=== PATIENT | female | born 1970 | race African-American/Black ===

== ENCOUNTER 2024-01-19 21:01 | Emergency (ER) | payer SELFPAY ==
[2024-01-19 21:04] VITALS: BP 127/77
[2024-01-19 21:27] LABS: % Basophils 0.4 % (0-2); % Eosinophils 1.7 % (0-6); % Immature Granulocytes 0.2 % (0-0.5); % Lymphocytes 47.1 % (20.5-51.1); % Monocytes 8.5 % (1.7-9.3); % Neutrophils 42.1 % (42.2-75.2); Absolute Eosinophils 0.1 10^3/uL (0-0.7); Absolute Lymphocytes 2.2 10^3/uL (1.2-3.4); Absolute Monocytes 0.4 10^3/uL (0.1-0.6); Hematocrit 32.3 % (37.0-47.0); Hemoglobin 10.3 g/dL (12.0-16.0); Mean Corp Hgb Conc. 31.9 g/dL (33.0-37.0); Mean Corpuscular Hgb 26.9 pg (27.0-31.0); Mean Corpuscular Volume 84.3 fL (81.0-99.0); Mean Platelet Volume 12.1 fL (7.4-10.4); Nucleated Red Blood Cells % 0 %; Platelet Count 216 10^3/uL (130-400); Red Blood Cell Count 3.83 10^6/uL (4.20-5.40); Red Cell Dist. Width 16.4 % (11.5-14.5); Urine Albumin Trace (Neg - Trace); Urine Bilirubin Negative (Negative); Urine Character Slightly Cloudy (Clear); Urine Color Yellow; Urine Glucose Negative (Negative); Urine Ketone Negative (Negative); Urine Leukocyte 2+ (Negative); Urine Nitrite Positive (Negative); Urine Occult Blood Negative (Negative); Urine Urobilinogen Negative (Neg - 1+); Urine pH 6.5 (5.0-9.0); White Blood Cell Count 4.7 10^3/uL (4.8-10.8)
[2024-01-19 21:38] LABS: Urine Red Blood Cell 0-2 /HPF (0-2); Urine Squamous Cell >30 /LPF (Few)
[2024-01-19 21:39] LABS: Urine Bacteria Moderate (Negative); Urine Mucus Few; Urine White Cell 21-25 /HPF (0-5)
[2024-01-19 21:51] LABS: ALT (SGPT) 13 U/L (0-35); AST (SGOT) 27 U/L (14-36); Albumin 4.3 g/dl (3.5-5.0); Alkaline Phosphatase 60 U/L (38-126); Blood Urea Nitrogen 17 mg/dl (7-17); Calcium 9.9 mg/dl (8.4-10.2); Carbon Dioxide 29 mmol/L (22-30); Chloride 107 mmol/L (98-107); Glucose 103 mg/dl (70-99); Lipase 244 U/L (23-300); Potassium 4.3 mmol/L (3.5-5.1); Sodium 139 mmol/L (135-145); Total Bilirubin 0.4 mg/dl (0.2-1.3); Total Protein 7.2 g/dl (6.3-8.2); eGFR > 60.00
--- NOTE | 2024-01-19 22:47 | ED.GENMED ---
History of Present Illness
General
Chief Complaint: Abdominal Pain
Source: patient
Exam Limitations: none
Time Seen by Provider: 01/19/24 22:19
Nursing documentation reviewed up to this point in time: agreed with
History of Present Illness
History of Present Illness:
Patient is a 53-year-old female who presents to the ER for evaluation. Patient has several complaints. For the past 1 month she has noticed intermittent lower abdominal discomfort and cloudy urine and off-and-on foul-smelling urine . She denies
any urinary frequency urgency. Denies any nausea vomiting back pain fever chills. Denies any vaginal discharge
In addition she has a numbness sensation in her left hand left arm(for the past several days ) and bilateral legs(since 3 am ). She reports for the past several days she has noticed an numbness sensation in her left hand left arm. She started
with joint pain between her index finger and her left middle finger and then developed a numb sensation to her left hand and arm. She woke up however in the middle the night around 3 AM last night with a numb sensation bilateral legs. She denies
any weakness to upper or lower extremities. She has had a headache for the past couple days. She does report she had a TIA 10 years ago.
Past History
Past History
ED Past Medical History: Other (Anemia. Mitral valve prolapse)
ED Past Surgical History: and Gynecological (Tubal ligation)
Review of Systems
Review of Systems
Allergies reviewed?: Yes
All Other Systems: ROS reviewed and negative except as documented in HPI and ROS
Constitutional: Reports no symptoms; Denies fever, fatigue or chills
EENT: Reports no symptoms
Respiratory: Reports no symptoms
Cardiac: Reports no symptoms
ABD/GI: Reports abdominal pain and other (Off-and-on lower abdominal discomfort); Denies nausea or vomiting
: Reports other (Cloudy foul-smelling urine)
Musculoskeletal: Reports no symptoms
Skin: Reports no symptoms
Neurological: Reports headache (Headache for the past several days resolved now) and other (Numb sensation to left hand and arm, numb sensation to bilateral legs )
Psychiatric: Reports no symptoms
Phy Exam
General Physical Exam
General Presentation: no apparent distress
General age: appears stated age
General Skin: warm and dry
General Habitus: normal
General Mental: alert
General Hydration: appears well hydrated
Neurological Exam
Neurological Exam: alert, oriented x3, no motor deficits, no sensory deficits, speech normal and other (Normal strength of bilateral upper and lower extremities normal sensation to upper and lower extremities)
Musculoskeletal Exam
Musculoskeletal Exam: full ROM
Skin Exam
Skin Exam: normal color and warm/dry
Psychiatric Exam
Psychiatric Exam: normal mood/affect
Course
Orders/Labs/Results
Orders:
Orders
01/19/24 21:13
CBC/With Diff [Complete Blood Count/With Diff] Urgent
CMP [Comprehensive Metabolic Panel] Urgent
Lipase Urgent
Lyme Progressive Urgent
Comment: ADD ON
Urinalysis Reflex To Culture Urgent
Date Specimen was Collected: 01/19/24
Time Specimen was Collected: 21:08
Urine Microscopic Reflex Cult Urgent
Urine Culture Urgent
DAMIR Source: U
Specimen Description:
Date Specimen was Collected: 01/19/24
Time Specimen was Collected: 21:08
01/19/24 22:59
Add On- LAB Urgent
Tests Added?: lyme disease
01/19/24 23:47
Cephalexin Monohydrate [Keflex] 500 mg PO NOW STA
01/20/24 00:30
CT Head W/o Iv Contrast Urgent
Reason For Exam: numbness to lue and b/l l/e
Abnormal Lab Results
01/19/24
21:13
WBC 4.7 L 10^3/uL
(4.8-10.8)
RBC 3.83 L 10^6/uL
(4.20-5.40)
Hgb 10.3 L g/dL
(12.0-16.0)
Hct 32.3 L %
(37.0-47.0)
MCH 26.9 L pg
(27.0-31.0)
MCHC 31.9 L g/dL
(33.0-37.0)
RDW 16.4 H %
(11.5-14.5)
MPV 12.1 H fL
(7.4-10.4)
Neutrophils % 42.1 L %
(42.2-75.2)
Glucose 103 H mg/dl
(70-99)
Urine Nitrite (Reflex) Positive A
(Negative)
Leukocyte Esterase Rfl 2+ A
(Negative)
Urine WBC (Reflex) 21-25 A /HPF
(0-5)
Urine Bacteria (Reflex) Moderate A
(Negative)
01/19/24 21:13
01/19/24 21:13
Vital Signs
Initial and Last Documented VS:
Initial Vital Signs
Temp Pulse Resp BP Pulse Ox
98.0 F 77 18 127/77 98
01/19/24 21:04 01/19/24 21:04 01/19/24 21:04 01/19/24 21:04 01/19/24 21:04
Last Documented Vital Signs
Temp Pulse Resp BP Pulse Ox
98.0 F 77 18 127/80 99
01/19/24 21:04 01/19/24 21:04 01/19/24 21:04 01/20/24 03:00 01/20/24 03:15
MDM/Problems Addressed
MDM/Problems Addressed:
Patient complains of cloudy urine fullness of lower abdominal discomfort off and on with no fevers. Urine does show nitrates and 21-25 wbc in addition however not related patient complains of left hand numbness and left arm numbness which she
noticed several days ago and bilateral leg numbness which started at 3 AM. She describes this as a subjective numb sensation denies actual tingling denies weakness. She did have a headache several days ago. She presents awake alert no acute
distress. She does report she does have history of TIA over 10 years ago however was never on aspirin or a statin. She complained of small joint pain in her left hand prior to the numbness starting she has no other joint pain or fevers. She has
no acute distress with a normal neurologic exam no deficit in strength normal sensation to upper and lower extremities. No febrile normal white count hemoglobin low at 10.3 which is improved from prior visit, however patient has chronic anemia
Will check CAT scan however patient will need follow-up for subjective numbness with subjective sensation in bilateral lower extremities and no deficit on exam less concerning for stroke. lyme testing ordered. will check ct but will plan for d/c
with outpt f/u.
Also pt will be treated for UTI
*Radiology
Radiology exam reviewed: radiology read reviewed
*Pulse Oximetry
Patient hypoxic: no
*Critical Care Note
Total Time (30-74mins, 75-104mins- exclusive of procedures): Not Applicable
ED Attending Note
-
Portions of this chart may have been created with voice recognition software.� Occasional wrong word or��sound alike� substitutions may have occurred due to the inherent limitations of voice recognition software.
Discharge Plan
Departure
Patient Disposition: Home (Routine Discharge)
Date of Disposition: 01/20/24
Time of Disposition: 03:19
Patient with high blood pressure during this ER visit?: Yes
Condition: Fair
Covid-19: Not Applicable
Discharge Problem:
UTI (urinary tract infection), Numbness
Prescriptions:
New
cephalexin 500 mg capsule
500 mg PO BID 7 Days Qty: 14 0RF
No Action
cefdinir 300 mg capsule
300 mg PO BID 7 Days Qty: 14 0RF
Referrals:
Andrey Bruno MD [Active] -
Daysi Tran PA-C [Family Provider] -
Activity Restrictions/Additional Instructions:
As discussed you will be treated for urinary tract infection antibiotic was sent to your pharmacy. Regarding numbness follow-up with your family doctor as well as neurology for further evaluation. Have your family doctor follow-up on Lyme testing
which was done in the ER. Return if any worsening of symptoms.
Interventions
Interventions:
*Risk Screen - Suicide Last Done: 01/19/24 21:04
*General Assessment Last Done: 01/19/24 21:04
*Neglect/Abuse Screening Last Done: 01/19/24 21:07
ED- Fall Risk Assessment Last Done: 01/19/24 23:18
*ED COVID-19 Vaccine History Last Done: 01/19/24 23:18
*Nursing Disposition Last Done: 01/20/24 03:43
JD-Zjbnqw-Lsgdtvvbvn Assessment Last Done: 01/19/24 23:18
ED- Neurological Assessment Last Done: 01/19/24 23:18
Discharge Date and Time
Discharge Date/Time: 01/20/24 03:44
Print Language: UPPER SORBIAN
[2024-01-19 23:17] VITALS: BP 134/78
[2024-01-19] MEDS: KEFLEX 500 MG PO (23:53)
[2024-01-20 00:41] VITALS: BP 143/87
[2024-01-20 01:00] VITALS: BP 146/96
[2024-01-20 02:00] VITALS: BP 138/89
[2024-01-20 03:00] VITALS: BP 127/80
[2024-01-23 14:17] LABS: Lyme Antibody Screen, EIA Negative (Negative)
== END 2024-01-20 03:44 | disposition home or self-care (01) ==
LOC: EMR 21:01
PROVIDERS: Emergency Medicine; EMERGENCY PHYSICIAN Emergency Medicine
DX: N39.0 Urinary tract infection, site not specified (principal); R20.0 Anesthesia of skin; R10.30 Lower abdominal pain, unspecified; R51.9 Headache, unspecified; M25.542 Pain in joints of left hand; R03.0 Elevated blood-pressure reading, without diagnosis of hypertension; I34.1 Nonrheumatic mitral (valve) prolapse; D64.9 Anemia, unspecified; Z86.73 Personal history of transient ischemic attack (TIA), and cerebral infarction without residual deficits
CPT/HCPCS: 99284; 70450; 80053; 81003; 81015; 83690; 85025; 86618; 87077; 87086; 87186

== ENCOUNTER 2024-09-23 07:32 | Emergency (ER) | payer SELFPAY ==
[2024-09-23] VITALS (8 sets, daily range): BP systolic 96–149; BP diastolic 63–90
[2024-09-23 08:29] LABS: % Basophils 0.5 % (0-2); % Immature Granulocytes 0.2 % (0-0.5); % Lymphocytes 45.8 % (20.5-51.1); % Neutrophils 41.5 % (42.2-75.2); Absolute Eosinophils 0.1 10^3/uL (0-0.7); Absolute Lymphocytes 1.9 10^3/uL (1.2-3.4); Absolute Monocytes 0.4 10^3/uL (0.1-0.6); Absolute Neutrophils 1.7 10^3/uL (1.4-6.5); Hematocrit 33.1 % (37.0-47.0); Hemoglobin 10.7 g/dL (12.0-16.0); Mean Corp Hgb Conc. 32.3 g/dL (33.0-37.0); Mean Corpuscular Hgb 28.8 pg (27.0-31.0); Mean Corpuscular Volume 89.2 fL (81.0-99.0); Mean Platelet Volume 12.1 fL (7.4-10.4); Nucleated Red Blood Cells % 0 %; Platelet Count 183 10^3/uL (130-400); Red Blood Cell Count 3.71 10^6/uL (4.20-5.40); Red Cell Dist. Width 15.1 % (11.5-14.5); White Blood Cell Count 4.1 10^3/uL (4.8-10.8)
[2024-09-23 08:39] LABS: ALT (SGPT) 20 U/L (0-35); AST (SGOT) 31 U/L (14-36); Albumin 3.8 g/dl (3.5-5.0); Alkaline Phosphatase 63 U/L (38-126); Blood Urea Nitrogen 17 mg/dl (7-17); Calcium 9.2 mg/dl (8.4-10.2); Carbon Dioxide 26 mmol/L (22-30); Chloride 110 mmol/L (98-107); Glucose 94 mg/dl (70-99); Potassium 4.1 mmol/L (3.5-5.1); Sodium 141 mmol/L (135-145); Total Bilirubin 0.7 mg/dl (0.2-1.3); Total Protein 6.9 g/dl (6.3-8.2); eGFR > 60.00
[2024-09-23 08:51] LABS: Troponin I 0.018 ng/ml
--- NOTE | 2024-09-23 09:29 | ED.GENMED ---
History of Present Illness
General
Chief Complaint: Chest Pain
Source: patient
Exam Limitations: none
Time Seen by Provider: 09/23/24 09:13
Nursing documentation reviewed up to this point in time: agreed with
History of Present Illness
History of Present Illness:
54-year-old female presents emergency room complaining of right arm pain and left-sided chest pain for the past several days. She did fall several days ago as well. She denies any shortness of breath.
Past History
Past History
ED Past Medical History: Other (Anemia. Mitral valve prolapse)
ED Past Surgical History: and Gynecological (Tubal ligation)
Social History
Tobacco: Non-smoker
Alcohol: None
Drug: None
Employment: Employed
Review of Systems
Review of Systems
Allergies reviewed?: Yes
All Other Systems: Not applicable
Constitutional: Reports no symptoms
EENT: Reports no symptoms
Respiratory: Reports no symptoms
Cardiac: Reports chest pain
ABD/GI: Reports no symptoms
: Reports no symptoms
Musculoskeletal: Reports joint pain
Skin: Reports no symptoms
Neurological: Reports no symptoms
Endocrine: Reports no symptoms
Hematologic/Lymphatic: Reports no symptoms
Psychiatric: Reports no symptoms
Phy Exam
Physical Exam
Physical Exam:
Physical Exam
General: no apparent distress, not acutely ill
Neck: supple. no meningeal signs. normal posterior pharynx
Heart: s1/s2 regular rate and rhythm, no murmur. equal radial
pulses.
HEENT: Pupils equal round reactive to light, EOMI
Lungs: no acute respiratory distress. clear bilaterally, chest wall tender to palpation
Abdomen: normal bowel sounds. not tender. no CVAT
Neuro: alert and oriented. no focal neurological deficits cranial nerves II through XII intact
Skin: no rash
Psychiatric: well kept. interactive and cooperative
Extremities: no edema. no calf tenderness. negative homans. good distal pulses
Scores
Heart Score for Chest Pain Patients
STEMI patient?: No
History: Slightly or Non-Suspicious
ECG: Normal
Age: >45 - <65 years
Risk Factors: No Risk Factors
Troponin: </= Normal Limit
Heart Score for Chest Pain Patients: 1
Heart Score Risk: 2.5% MACE over next 6 weeks
Course
Orders/Labs/Results
Orders:
Orders
09/23/24 07:34
ECG [Electrocardiogram (*1)] Urgent
Reason for Study: Chest Pain
EKG- Treatment ONCE
09/23/24 08:20
Complete Blood Count/With Diff Urgent
Comprehensive Metabolic Panel Urgent
Troponin I Urgent
09/23/24 09:26
Hip, Right 2-3 Views [CR Hip - RT w/wo Pel 2-3 Vw*] Urgent
Comment:
Reason For Exam: fall, right hip pain
Include a pelvis x-ray?: Yes
Knee, Right 4 or More Views [CR Knee- Right 4 Or More View*] Urgent
Comment:
Reason For Exam: fall, right knee pain
Shoulder, Right 2 Views [CR Shoulder - Right Min 2 View] Urgent
Comment:
Reason For Exam: fall, right shoulder pain
09/23/24 09:27
CR Chest - 2 Views Urgent
Comment:
Reason For Exam: chest pain
09/23/24 09:28
Aspirin Chewable [Low Strength Aspirin] 324 mg PO NOW STA
09/23/24 09:56
Foot, Right 3 View [CR Foot - Right Min 3 Views] Urgent
Comment:
Reason For Exam: right foot pain after fall
09/23/24 12:10
Troponin I Urgent
Abnormal Lab Results
09/23/24
08:20
WBC 4.1 L 10^3/uL
(4.8-10.8)
RBC 3.71 L 10^6/uL
(4.20-5.40)
Hgb 10.7 L g/dL
(12.0-16.0)
Hct 33.1 L %
(37.0-47.0)
MCHC 32.3 L g/dL
(33.0-37.0)
RDW 15.1 H %
(11.5-14.5)
MPV 12.1 H fL
(7.4-10.4)
Neutrophils % 41.5 L %
(42.2-75.2)
Monocytes % 10.0 H %
(1.7-9.3)
Chloride 110 H mmol/L
(98-107)
09/23/24 08:20
09/23/24 08:20
Vital Signs
Initial and Last Documented VS:
Initial Vital Signs
Temp Pulse Resp BP Pulse Ox
98.1 F 73 16 119/80 98
09/23/24 07:39 09/23/24 07:39 09/23/24 07:39 09/23/24 07:39 09/23/24 07:39
Last Documented Vital Signs
Temp Pulse Resp BP Pulse Ox
98.1 F 75 17 149/90 99
09/23/24 07:39 09/23/24 10:30 09/23/24 10:30 09/23/24 10:00 09/23/24 10:30
MDM/Problems Addressed
Differential Diagnosis Includes:
Fall, fracture, ACS, PE, chest wall pain
MDM/Problems Addressed:
54-year-old female with chest pain, unclear etiology. Doubt ACS or PE. Right shoulder contusion, right leg contustion. No signs of fracture. Neurologically intact.
*Radiology
Radiology exam reviewed: radiology read reviewed (cxr, shoulder x-ray, right hip, right knee, right foot no acute findings)
*Pulse Oximetry
Patient hypoxic: no
*EKG
Interpreted by ED Provider?: Yes
EKG Intrepretation Date: 09/23/24
EKG Intrepretation Time: 07:36
Interpretation: normal
Comparison EKG: no comparison EKG present
Heart Rate: 73
Rate: normal
Rhythm: sinus
[place]: normal axis
Interval: normal interval
QRS Pattern: normal QRS
Ischemia: no ischemia
*Urologist Md Interpretation
Rate: normal
Interpretation: normal
Heart Rate: 72
Rhythm: sinus
*Critical Care Note
Total Time (30-74mins, 75-104mins- exclusive of procedures): Not Applicable
Patient Management
Social determinants of health affecting care: Living situation and Strong social support
Escalation/DeEscalation of care consider admission/obs:
admit not indicated
ED Attending Note
-
Portions of this chart may have been created with voice recognition software.� Occasional wrong word or��sound alike� substitutions may have occurred due to the inherent limitations of voice recognition software.
Discharge Plan
Departure
Patient Disposition: Home (Routine Discharge)
Date of Disposition: 09/23/24
Time of Disposition: 14:15
Patient with high blood pressure during this ER visit?: Yes
Condition: Good
Discharge Problem:
Chest pain, Fall, Contusion of right shoulder, Contusion of hip, right
Instructions: Chest Pain DCA Follow Up, BLOOD PRESSURE
Prescriptions:
No Action
cefdinir 300 mg capsule
300 mg PO BID 7 Days Qty: 14 0RF
cephalexin 500 mg capsule
500 mg PO BID 7 Days Qty: 14 0RF
Referrals:
UNKNOWN - PT DOES,NOT KNOW [Family Provider] -
Interventions
Interventions:
*Risk Screen - Suicide Last Done: 09/23/24 07:39
*General Assessment Last Done: 09/23/24 09:07
*Neglect/Abuse Screening Last Done: 09/23/24 07:39
*ED- Fall Risk Assessment Last Done: 09/23/24 09:07
*ED COVID-19 Vaccine History Last Done: 09/23/24 09:07
ED- Cardiac Assessment Last Done: 09/23/24 09:07
Discharge Date and Time
Print Language: LUXEMBOURGER
[2024-09-23] MEDS: LOW STRENGTH ASPIRIN 324 MG PO (09:49)
[2024-09-23 12:58] LABS: Troponin I < 0.012 ng/ml
== END 2024-09-23 14:45 | disposition home or self-care (01) ==
LOC: EMR 07:32
PROVIDERS: EMERGENCY PHYSICIAN Emergency Medicine
DX: R07.89 Other chest pain (principal); S40.011A Contusion of right shoulder, initial encounter; S70.01XA Contusion of right hip, initial encounter; W19.XXXA Unspecified fall, initial encounter; I34.1 Nonrheumatic mitral (valve) prolapse
CPT/HCPCS: 99285; 71046; 73030; 73502; 73564; 73630; 80053; 84484; 85025; 93005

== ENCOUNTER 2024-12-27 11:11 | Emergency (ER) | payer OTHER, SELFPAY ==
[2024-12-27 11:13] VITALS: BP 113/80
--- NOTE | 2024-12-27 11:54 | ED.GENMED ---
History of Present Illness
General
Chief Complaint: Musculo-Skeletal Complaint
Source: patient
Exam Limitations: none
Time Seen by Provider: 12/27/24 11:25
Nursing documentation reviewed up to this point in time: agreed with
History of Present Illness
History of Present Illness:
54 Y/O F with h/o MVP, anemia
says 2-3 months ago she had a fall at work and landed on her buttocks as the client grabbed onto her R arm
pt has had pain ongoing in her R shoulder and R back from neck to buttocks since
she is in PT for it
and recently last week had outpatient MRI at [place] for the shoulder pain
pt says ever since then the pain is worse in the same distribution pattern it has been
no new symptoms
no numbness/tingling/weakness
pt denies headache despite saying she had one in triage
denies sore throat, fever, cp, sob
pt is able to move her back and shoulder well but has pain worse at night
she has been taking motrin and flexeril without relief
pt is asking for something else for pain
Past History
Past History
ED Past Medical History: Other (Anemia. Mitral valve prolapse)
ED Past Surgical History: and Gynecological (Tubal ligation)
Social History
Tobacco: Non-smoker
Alcohol: None
Drug: None
Employment: Employed
Review of Systems
Review of Systems
Allergies reviewed?: Yes
All Other Systems: Not applicable
Phy Exam
Physical Exam
Physical Exam:
GENERAL: Alert , in no apparent distress
HEAD: NCAT
NECK: no midline tenderness, active ROM intact, mild R trap tenderness
full ROM
EYE: pupils equal and reactive, EOMs intact.
ENT: o/p clr, mmm. no hemotympanum
CARDIAC: Regular rate and rhythm, no edema
LUNGS: Clear breath sounds bilaterally, no acute respiratory distress, no wheezes/rales/rhonchi
ABDOMEN: Soft, without focal tenderness, no r/g, no cvat
NEUROLOGICAL: Alert and oriented, no focal neuro deficits, CN intact, 5/5 strength, sensation intact
SKIN: Warm and dry,
back: R paraspinal tenderness, full ROM
MUSCULOSKELETAL: No edema, well perfused.
full ROM of shoulder nontender
normal insepctio nof arm
nv intact
PSYCH: Normal and appropriate interaction.
Course
Orders/Labs/Results
Orders:
Orders
12/27/24 12:14
Dexamethasone [Decadron] 10 mg PO NOW STA
Vital Signs
Initial and Last Documented VS:
Initial Vital Signs
Temp Pulse Resp BP Pulse Ox
36.8 C 82 18 113/80 99
12/27/24 11:13 12/27/24 11:13 12/27/24 11:13 12/27/24 11:13 12/27/24 11:13
Last Documented Vital Signs
Temp Pulse Resp BP Pulse Ox
36.8 C 82 18 113/80 99
12/27/24 11:13 12/27/24 11:13 12/27/24 11:13 12/27/24 11:13 12/27/24 11:55
MDM/Problems Addressed
Differential Diagnosis Includes:
musculoskeletal pain, disc herniation,
MDM/Problems Addressed:
54 y/o F
no cardiac rf
here with chronic R
*Pulse Oximetry
SaO2: 99
Oxygen Mode of Delivery: Room air
ED Attending Note
-
Portions of this chart may have been created with voice recognition software.� Occasional wrong word or��sound alike� substitutions may have occurred due to the inherent limitations of voice recognition software.
Discharge Plan
Departure
Patient Disposition: Home (Routine Discharge)
Date of Disposition: 12/27/24
Time of Disposition: 12:12
Patient with high blood pressure during this ER visit?: No
Condition: Fair
Covid-19: Not Applicable
Discharge Problem:
Tendinopathy of right rotator cuff, Back pain
Instructions: Muscle and Bone Pain (DC), Rotator cuff repair - Discharge instructions
Prescriptions:
New
methylprednisolone [Medrol ([place])] 4 mg tablets,dose pack
See Rx Instructions .ROUTE .COMPLEX Qty: 21 0RF
Rx Instructions:
for 6 days
metaxalone 800 mg tablet
800 mg PO TID PRN (Reason: muscle pain) Qty: 12 0RF
No Action
cefdinir 300 mg capsule
300 mg PO BID 7 Days Qty: 14 0RF
cephalexin 500 mg capsule
500 mg PO BID 7 Days Qty: 14 0RF
Referrals:
Elijah Cobian MD [Family Provider, Internal Medicine]
Activity Restrictions/Additional Instructions:
YOU SHOULD SEE AN ORTHOPEDIST REGARDING YOUR ROTATOR CUFF TEAR AND YOUR BURSITIS
IN THE MEANTIME, TRY THE MEDROL DOSE MERCEDEZ (START TOMORROW MORNING)
YOU WERE GIVEN A DOSE OF STEROIDS TODAY IN THE ER
TAKE TYLENOL 3 TIMES A DAY
SKELAXIN UP TO 3 TIMES A DAY FOR MUSCLE PAIN (THIS MAY MAKE YOU SLEEPY)
RETURN FOR: SEVERE PAIN, FEVER, SWELLING, WEAKNESS, NUMBNESS, OR ANY CONCERNS.
Interventions
Interventions:
*Risk Screen - Suicide Last Done: 12/27/24 11:13
*General Assessment Last Done: 12/27/24 11:13
*Neglect/Abuse Screening Last Done: 12/27/24 11:13
*ED- Fall Risk Assessment Last Done: 12/27/24 11:40
*ED COVID-19 Vaccine History Last Done: 12/27/24 11:40
Discharge Date and Time
Print Language: PALESTINIAN
[2024-12-27] MEDS: DECADRON 10 MG PO (12:36)
== END 2024-12-27 12:43 | disposition home or self-care (01) ==
LOC: EMR 11:11
PROVIDERS: EMERGENCY PHYSICIAN Emergency Medicine; FAMILY PHYSICIAN Internal Medicine
DX: M54.9 Dorsalgia, unspecified (principal); M75.31 Calcific tendinitis of right shoulder
CPT/HCPCS: 99283

== ENCOUNTER 2025-02-21 16:24 | Emergency (ER) | payer OTHER, SELFPAY ==
[2025-02-21 16:56] LABS: Hematocrit 37.1 % (37.0-47.0); Hemoglobin 12.1 g/dL (12.0-16.0); Mean Corp Hgb Conc. 32.6 g/dL (33.0-37.0); Mean Corpuscular Volume 88.8 fL (81.0-99.0); Nucleated Red Blood Cells % 0 %; Platelet Count 152 10^3/uL (130-400); Red Cell Dist. Width 13.9 % (11.5-14.5)
[2025-02-21 17:10] LABS: ALT (SGPT) 31 U/L (0-35); AST (SGOT) 36 U/L (14-36); Albumin 4.5 g/dl (3.5-5.0); Alkaline Phosphatase 66 U/L (38-126); Blood Urea Nitrogen 20 mg/dl (7-17); Calcium 9.4 mg/dl (8.4-10.2); Carbon Dioxide 27 mmol/L (22-30); Chloride 109 mmol/L (98-107); Glucose 111 mg/dl (70-99); Potassium 4.0 mmol/L (3.5-5.1); Sodium 141 mmol/L (135-145); Total Protein 7.5 g/dl (6.3-8.2); eGFR > 60.00
[2025-02-21 17:21] LABS: Troponin I < 0.012 ng/ml
--- NOTE | 2025-02-21 17:52 | ED.GENMED ---
History of Present Illness
<Salvatore Dick DO - Last Filed: 02/21/25 17:58>
General
Chief Complaint: Chest Pain
Source: patient
Time Seen by Provider: 02/21/25 17:23
History of Present Illness
History of Present Illness:
54-year-old female presents to the emergency room complaining of fatigue, periods of chest pain and shortness of breath. Patient has been feeling this way for the past 2 days. Also feels like she has 'brain fog'. No focal weakness. Additionally
patient has been having some pain in her right thigh. She has a appointment with her primary care doctor to evaluate this tomorrow. Patient denies any history of smoking. No headache.
Past History
<Salvatore Dick DO - Last Filed: 02/21/25 17:58>
Past History
ED Past Medical History: Other (Anemia. Mitral valve prolapse)
ED Past Surgical History: and Gynecological (Tubal ligation)
Social History
Tobacco: Non-smoker
Alcohol: None
Drug: None
Employment: Employed
Phy Exam
<Salvatore Dick DO - Last Filed: 02/21/25 17:58>
Physical Exam
Physical Exam:
General: Awake, Alert, Oriented X3. No acute distress.
Vitals: unremarkable
Head: Atraumatic
Eyes: Pupils equal, EOMI
Throat: Airway intact, no exudates
Neck: Trachea midline
Lungs: Clear and equal b/l
Heart: Regular rate, no murmurs
Abd: Soft, Nontender, No pulsatile mass
Neuro: Cranial nerves intact, muscle strength equal bilaterally, cerebellar exam normal
Skin: Warm, dry, no rash
Extremities: pulses equal b/l, no edema
Scores
<Byron Gardiner DO - Last Filed: 02/24/25 16:08>
Heart Score for Chest Pain Patients
STEMI patient?: No
History: Slightly or Non-Suspicious
ECG: Normal
Age: >/= 65 years
Risk Factors: 1 or 2 Risk Factors
Troponin: </= Normal Limit
Heart Score for Chest Pain Patients: 3
Heart Score Risk: 2.5% MACE over next 6 weeks
Course
Karllt;Salvatore Dick DO - Last Filed: 02/21/25 17:58>
Orders/Labs/Results
Orders:
Orders
02/21/25 16:24
Electrocardiogram (*1) Urgent
Reason for Study: Chest Pain
EKG- Treatment ONCE
02/21/25 16:50
Complete Blood Count/With Diff Urgent
Comprehensive Metabolic Panel Urgent
Troponin I Urgent
02/21/25 18:35
D-Dimer Urgent
02/21/25 19:16
CT Chest PE Study Urgent
Comment:
Reason For Exam: chest pain, sob
02/21/25 19:30
Acetaminophen [Tylenol] 1,000 mg PO NOW STA
Abnormal Lab Results
02/21/25 02/21/25
16:50 18:35
WBC 4.1 L 10^3/uL
(4.8-10.8)
RBC 4.18 L 10^6/uL
(4.20-5.40)
MCHC 32.6 L g/dL
(33.0-37.0)
MPV 11.9 H fL
(7.4-10.4)
Neutrophils % 36.6 L %
(42.2-75.2)
Monocytes % 14.4 H %
(1.7-9.3)
D-Dimer 1.65 H ug/mlFEU
(0.00-0.50)
Chloride 109 H mmol/L
(98-107)
BUN 20 H mg/dl
(7-17)
Glucose 111 H mg/dl
(70-99)
02/21/25 16:50
02/21/25 16:50
Vital Signs
Initial and Last Documented VS:
Initial Vital Signs
Temp Pulse Resp Pulse Ox
97.7 F 73 16 100
02/21/25 16:33 02/21/25 16:33 02/21/25 16:33 02/21/25 16:33
Last Documented Vital Signs
Temp Pulse Resp BP Pulse Ox
97.7 F 75 16 143/98 100
02/21/25 16:33 02/21/25 21:00 02/21/25 21:00 02/21/25 21:00 02/21/25 21:00
<Byron Gardiner, DO - Last Filed: 02/24/25 16:08>
Orders/Labs/Results
Orders:
Orders
02/21/25 16:24
Electrocardiogram (*1) Urgent
Reason for Study: Chest Pain
EKG- Treatment ONCE
02/21/25 16:50
Complete Blood Count/With Diff Urgent
Comprehensive Metabolic Panel Urgent
Troponin I Urgent
02/21/25 18:35
D-Dimer Urgent
02/21/25 19:16
CT Chest PE Study Urgent
Comment:
Reason For Exam: chest pain, sob
02/21/25 19:30
Acetaminophen [Tylenol] 1,000 mg PO NOW STA
Abnormal Lab Results
02/21/25 02/21/25
16:50 18:35
WBC 4.1 L 10^3/uL
(4.8-10.8)
RBC 4.18 L 10^6/uL
(4.20-5.40)
MCHC 32.6 L g/dL
(33.0-37.0)
MPV 11.9 H fL
(7.4-10.4)
Neutrophils % 36.6 L %
(42.2-75.2)
Monocytes % 14.4 H %
(1.7-9.3)
D-Dimer 1.65 H ug/mlFEU
(0.00-0.50)
Chloride 109 H mmol/L
(98-107)
BUN 20 H mg/dl
(7-17)
Glucose 111 H mg/dl
(70-99)
02/21/25 16:50
02/21/25 16:50
Vital Signs
Initial and Last Documented VS:
Initial Vital Signs
Temp Pulse Resp Pulse Ox
97.7 F 73 16 100
02/21/25 16:33 02/21/25 16:33 02/21/25 16:33 02/21/25 16:33
Last Documented Vital Signs
Temp Pulse Resp BP Pulse Ox
97.7 F 75 16 143/98 100
02/21/25 16:33 02/21/25 21:00 02/21/25 21:00 02/21/25 21:00 02/21/25 21:00
<Salvatore Dick, DO - Last Filed: 02/21/25 17:58>
*Pulse Oximetry
SaO2: 100
Oxygen Mode of Delivery: Room air
<Byron Gardiner DO - Last Filed: 02/24/25 16:08>
*Pulse Oximetry
Patient hypoxic: no
*Critical Care Note
Total Time (30-74mins, 75-104mins- exclusive of procedures): Not Applicable
<Byron Gardiner DO - Last Filed: 02/24/25 16:08>
Update Note
Update Note:
9 PM update signout pending CT angio rule out PE elevated D-dimer, patient appears comfortable she is laughing pulse ox 100% on room air awaiting CT report
ED Attending Note
<Salvatore Dick DO - Last Filed: 02/21/25 17:58>
-
Portions of this chart may have been created with voice recognition software.� Occasional wrong word or��sound alike� substitutions may have occurred due to the inherent limitations of voice recognition software.
Discharge Plan
Departure
Patient Disposition: Home (Routine Discharge)
Date of Disposition: 02/21/25
Time of Disposition: 22:19
Patient with high blood pressure during this ER visit?: No
Condition: Good
Discharge Problem:
Chest pain
Prescriptions:
No Action
cefdinir 300 mg capsule
300 mg PO BID 7 Days Qty: 14 0RF
cephalexin 500 mg capsule
500 mg PO BID 7 Days Qty: 14 0RF
methylprednisolone [Medrol (Richy)] 4 mg tablets,dose pack
See Rx Instructions .ROUTE .COMPLEX Qty: 21 0RF
Rx Instructions:
for 6 days
metaxalone 800 mg tablet
800 mg PO TID PRN (Reason: muscle pain) Qty: 12 0RF
Referrals:
Elijah Cobian MD [Family Provider, Internal Medicine] - Keep scheduled appt
Interventions
Interventions:
*Risk Screen - Suicide Last Done: 02/21/25 16:33
*General Assessment Last Done: 02/21/25 19:57
*Neglect/Abuse Screening Last Done: 02/21/25 16:33
*ED- Fall Risk Assessment Last Done: 02/21/25 19:57
*ED COVID-19 Vaccine History Last Done: 02/21/25 19:57
*Nursing Disposition Last Done: 02/21/25 22:24
ED- Cardiac Assessment Last Done: 02/21/25 18:24
Discharge Date and Time
Discharge Date/Time: 02/21/25 22:25
Print Language: WOLOF
[2025-02-21 18:55] LABS: D-Dimer 1.65 ug/mlFEU (0.00-0.50)
[2025-02-21] MEDS: TYLENOL 1000 MG PO (19:55)
[2025-02-21 19:56] VITALS: BMI 36.9
[2025-02-21 20:37] VITALS: BP 124/91
[2025-02-21 21:00] VITALS: BP 143/98
== END 2025-02-21 22:25 | disposition home or self-care (01) ==
LOC: EMR 16:24
PROVIDERS: Emergency Medicine; EMERGENCY PHYSICIAN Emergency Medicine; FAMILY PHYSICIAN Internal Medicine
DX: R07.9 Chest pain, unspecified (principal); I34.1 Nonrheumatic mitral (valve) prolapse
CPT/HCPCS: 99284; 71275; 80053; 84484; 85025; 85379; 93005; Q9967